=== PATIENT | male | born 1970 | race Hispanic/Latino ===

== ENCOUNTER → 2021-02-07 | Outpatient (CLI) | payer BC ==
[~2021-02-07] MED LIST: IOHEXOL-350 75 ML VIAL IV ONE
== END | disposition home or self-care (01) ==
LOC: RAH 14:02
PROVIDERS: ATTEND Internal Medicine
DX: R59.0 Localized enlarged lymph nodes (principal); Z85.528 Personal history of other malignant neoplasm of kidney
CPT/HCPCS: 70492; Q9967

== ENCOUNTER 2023-05-13 12:43 | Emergency (ER) | payer BC, OTHER ==
[~2023-05-13] VITALS: Ht 190.5 cm; Wt 112.0 kg
[2023-05-13] MEDS ORDERED: ACETAMINOPHEN 325 MG TAB PO ONE (13:30)
[2023-05-13] MEDS ORDERED: ACET-2893 PO (14:47)
[2023-05-13 15:24] VITALS: BP 131/88; PULSE 77; RESP 17; O2SAT 97
== END 2023-05-13 15:33 | disposition home or self-care (01) ==
LOC: EDH 12:43
DX: S96.812A Strain of other specified muscles and tendons at ankle and foot level, left foot, initial encounter (principal); S96.811A Strain of other specified muscles and tendons at ankle and foot level, right foot, initial encounter; S86.812A Strain of other muscle(s) and tendon(s) at lower leg level, left leg, initial encounter; I10 Essential (primary) hypertension; Z98.890 Other specified postprocedural states; Z85.850 Personal history of malignant neoplasm of thyroid; W18.39XA Other fall on same level, initial encounter; Y93.89 Activity, other specified; Y92.89 Other specified places as the place of occurrence of the external cause; Y99.8 Other external cause status
CPT/HCPCS: 73562; 73610

== ENCOUNTER → 2025-07-02 | Outpatient (CLI) | payer BC ==
[~2025-07-02] MED LIST changes: +ACET-3797 PO; -IOHEXOL-350 75 ML VIAL IV ONE
--- NOTE | 2025-07-03 11:01 | HMCIMG ---
ULTRASOUND PELVIS, LIMITED. Clinical Indication: Benign prostatic hyperplasia. Urinary retention. Comparison: Prior CT - DRAINAGE RENAL PELVIS dated 05/25/[address] ABDOMEN/PELVIS W/O CONTRAST dated 05/22/2012. Technique: Limited transabdominal pelvic ultrasound was performed with grayscale imaging and assessment of bladder volumes. Findings: Urinary Bladder: The urinary bladder is adequately distended on prevoid imaging. Prevoid bladder volume measures approximately 233.5 mL. Postvoid bladder volume measures approximately 159.8 mL, consistent with significant postvoid residual urine. Bladder wall thickness measures approximately 4 mm when fully distended, within acceptable limits. No intraluminal mass or calculus is identified. Both ureteric jets are visualized, indicating patency of the distal ureters. Prostate Gland: The prostate gland is enlarged, measuring approximately 4.8 3.4 5.5 cm, with a calculated volume of approximately 47.35 mL. The echotexture is mildly heterogeneous. Findings are consistent with benign prostatic hyperplasia. No focal prostatic mass is identified on this limited transabdominal examination. Pelvic Soft Tissues: On the right side, a well-defined anechoic structure consistent with a urocele is noted, measuring approximately 15 11 15 mm. Impression: 1. Enlarged prostate gland with a calculated volume of approximately 47.35 mL, compatible with benign prostatic hyperplasia. 2. Significant postvoid residual urinary volume, consistent with urinary retention, likely secondary to bladder outlet obstruction. 3. Small right-sided urocele. 4. Comparison is made with prior CT - DRAINAGE RENAL PELVIS dated 05/25/[address] ABDOMEN/PELVIS W/O CONTRAST dated 05/22/2012. Recommendations: 1. Correlate clinically and with serum PSA levels as per ACR and urology practice guidelines for evaluation of benign prostatic hyperplasia. 2. Urology consultation is recommended for management of bladder outlet obstruction and significant postvoid residual urine, in accordance with ACR Appropriateness Criteria. 3. Follow-up imaging is not routinely required for the small urocele unless clinically symptomatic or showing interval change. /[place]
== END | disposition home or self-care (01) ==
LOC: RAH 10:18
PROVIDERS: ATTEND Nurse Practitioner Family
DX: N40.1 Benign prostatic hyperplasia with lower urinary tract symptoms (principal); R33.9 Retention of urine, unspecified; R33.8 Other retention of urine
CPT/HCPCS: 76857

== ENCOUNTER 2025-07-04 01:22 | Emergency (ER) | payer BC ==
[~2025-07-04] VITALS: Ht 190.5 cm; Wt 116.1 kg
--- NOTE | 2025-07-04 01:58 | ERN ---
ED Note History of Present Illness Stated Complaint: C/O URINARY RETENTION Chief Complaint: Urinary Retention Time Seen by MD: : Time Seen by Midlevel: :27 Dictation: The patient is a 55-year-old male with a history of kidney cancer on remission and thyroidectomy who presents to the emergency department with urinary retention onset prior to arrival. Patient reports that he had a Valladares done last Wednesday and they removed on Wednesday and was doing good with out it started again with the retention today. Reports he was seen here yesterday where they did a ultrasound and revealed he had BPH in the started him on tamsulosin. He is pending a follow up with the Urology. Patient denies any fevers, nausea or vomiting, abdominal pain. Denies any other associated symptoms. Allergies: Coded Allergies: No Known Allergies (Verified Allergy, 05/22/12) Home Meds Active Scripts Cephalexin Monohydrate (Keflex) 500 Mg Cap, 1 CAP PO TID for 5 Days, #15 CAP 0 Refills Prov:ZACK LYNN DO 07/04/25 Acetaminophen (Acetaminophen ER) 650 Mg Tablet.er, 650 MG PO TID for 10 Days, #30 TAB Prov:CARLY MOMIN V [employer] 05/13/23 Past Medical History Past Medical History: Hypertension, Other Additional Past Medical Hx: KIDNEY CA (IN REMISSION) Surgical History: Other Surgical History Other: THYROIDECTOMY RN Note Reviewed/Agreed w/PFSH: Yes Review of System Dictation Constitutional: Negative for fever,chills, and weight loss Eyes: Negative for injury, pain,redness, and discharge ENT: Negative for injury,pain or swelling Cardiovascular: Negative for chest pain, palpitations, and edema Respiratory: Negative for shortness of breath, cough, and wheezing, Abdomen/GI: Negative for abdominal pain, nausea, vomiting, diarrhea, and constipation Back: Negative for injury and pain : Positive for urinary retention MS/Extremity: Negative for injury and deformity Skin: Negative for rash, and discoloration Neuro: Negative for headache, weakness, numbness, tingling, and seizure Psych: Negative for suicide ideation, homicidal ideation, and hallucinations Initial Vital Sign VS Vital Signs Date Time Temp Pulse Resp B/P (MAP) Pulse Ox O2 Delivery O2 Flow Rate FiO2 07/04/25 01:24 97.3 104 24 179/112 97 Room Air 07/04/25 03:36 0 21 Physical Exam Dictation Vital Signs reviewed General Appearance: Alert, oriented x 3, no acute distress, well developed, nourished. Head and Face: non-traumatic. Eyes: PERRL, pink conjunctivas, eyelid no trauma, anterior chamber with arcus senilis. Ears: Pinnas intact and no signs of trauma or erythema ear canals clear and no discharge TM no erythema Nose: No discharge, no bleeding. Oropharynx: Mouth normal, tongue pink. pharynx clear,no erythema, tonsils no exudates, no abscesses noted, mucous membrane moist Neck: Supple, non-tender, no thyromegaly, no masses, no JVD, no bruits Breast:Deferred Chest:No tenderness, no crepitus, no paradoxical movement, no retractions Lungs:Clear, well-ventilated, symmetric, no rales, no wheezing, no rhonchi, no stridor, good breath sounds bilaterally Heart: Regular rate, regular rhythm, no murmur, no gallops Vascular: no peripheral edema, Abdomen: Soft, positive bowel sounds, nondistended, no guarding, nontender, no rebound, no masses no hepatomegaly, no splenomegaly, no Subramanian's sign, no hernias. Rectal: Deferred Genital: Deferred Neurological: Normal speech, motor function intact, sensory function intact Musculoskeletal: Neck nontender, full range of motion, back nontender, full range of motion, Extremities: nontender, full range of motion Skin: Color pink, dry, no turgor, no rash, no lacerations, no abrasions, no contusions. Lymphatic: Deferred Results (Laboratory/Radiology) Laboratory/Radiology Laboratory Tests Test 07/04/25 01:54 07/04/25 02:42 White Blood Count 6.7 K/uL (4.8-10.8) Red Blood Count 4.17 MIL/uL (4.50-6.20) L Hemoglobin 12.3 g/dL (14.0-18.0) L Hematocrit 37.1 % (42-54) L Mean Corpuscular Volume 89.0 fL (79-99) Mean Corpuscular Hemoglobin 29.5 pg (27.0-33.0) Mean Corpuscular Hemoglobin Concent 33.2 g/dL (32.0-36.0) Red Cell Distribution Width 14.4 % (11.0-15.5) Platelet Count 188 K/uL (130-400) Mean Platelet Volume 10.6 fL (7.5-10.5) H Immature Granulocyte % (Auto) 0.9 % (0-1) Neutrophils (%) (Auto) 53.1 % (40.0-77.0) Lymphocytes (%) (Auto) 32.3 % (21.0-51.0) Monocytes (%) (Auto) 10.2 % (3.0-13.0) Eosinophils (%) (Auto) 2.9 % (0.0-8.0) Basophils (%) (Auto) 0.6 % (0.0-5.0) Neutrophils # (Auto) 3.5 K/uL (1.8-7.7) Lymphocytes # (Auto) 2.2 K/uL (1.0-4.8) Monocytes # (Auto) 0.7 K/uL (0.1-1.0) Eosinophils # (Auto) 0.19 K/uL (0.00-0.70) Basophils # (Auto) 0.04 K/uL (0.00-0.20) Absolute Immature Granulocyte (auto 0.06 K/uL (0-1) Nucleated Red Blood Cells 0.0 % (0.0-0.19) Sodium Level 136 mmol/L (136-145) Potassium Level 3.8 mmol/L (3.5-5.1) Chloride Level 102 mmol/L (101-111) Carbon Dioxide Level 26 mmol/L (21-32) Blood Urea Nitrogen 16 mg/dL (7-18) Creatinine 1.2 mg/dL (0.5-1.3) Glomerular Filtration Rate Calc 72 mL/min (>90) Random Glucose 89 mg/dL (70-105) Total Calcium 8.6 mg/dL (8.5-10.1) Urine Color COLORLESS (YELLOW) Urine Appearance CLEAR (CLEAR) Urine pH 6.5 (5.0-8.0) Urine Specific English 1.007 (1.001-1.031) Urine Protein NEGATIVE mg/dL (NEGATIVE) Urine Glucose (UA) NEGATIVE mg/dL (NEGATIVE) Urine Ketones NEGATIVE mg/dL (NEGATIVE) Urine Occult Blood SMALL (NEGATIVE) H Urine Nitrate NEGATIVE (NEGATIVE) Urine Bilirubin NEGATIVE mg/dL (NEGATIVE) Urine Urobilinogen 0.2 mg/dL (0.2-1.0) Urine Leukocyte Esterase NEGATIVE [place]oy/uL Urine RBC 0-1 /HPF (0-1) Urine WBC 2-5 /HPF (0-1) H Urine Bacteria None /HPF (None Seen) Labs Reviewed?: Yes ED Course ED Course Orders Procedure Category Date Status Time Nurse Driven Valladares NAM 07/04/25 In Process Removal Pro 01:33 Cbc With Differential LAB 07/04/25 Complete 01:36 Urinalysis Profile LAB 07/04/25 Complete 01:36 Basic Metabolic Panel LAB 07/04/25 Complete 01:36 Vital Signs Date Time Temp Pulse Resp B/P (MAP) Pulse Ox O2 Delivery O2 Flow Rate FiO2 07/04/25 03:36 63 17 97/61 98 Room Air* 0 21 07/04/25 01:24 97.3 104 24 179/112 97 Room Air Medical Decision Making MDM The patient is a 55-year-old male with a history of kidney cancer on remission and thyroidectomy who presents to the emergency department with urinary retention onset prior to arrival. Patient reports that he had a Valladares done last Wednesday and they removed on Wednesday and was doing good with out it started again with the retention today. Reports he was seen here yesterday where they did a ultrasound and revealed he had BPH in the started him on tamsulosin. He is pending a follow up with the Urology. Patient denies any fevers, nausea or vomiting, abdominal pain. Denies any other associated symptoms. Differential diagnosis: UTI, urinary retention, acute kidney injury, dehydration Need for hospitalization: Patient does not meet criteria for hospitalization. There are no social concerns with this patient. Vital signs are stable Patient has a Valladares catheter placed with 400 cc of fluid removed. Patient reports great improvement of symptoms. Labs are unremarkable. No MANISH. No leukocytosis. Urinalysis does show some white blood cells. We will treat with the antibiotics. No signs of SIRS, sepsis, pyelonephritis or other. We will DC and recommend a urology follow up as an outpatient. DX & DISP Disposition: Discharge Departure Impression: Primary Impression: Urinary retention due to benign prostatic hyperplasia Additional Impression: UTI (urinary tract infection) Condition: Stable Scripts Cephalexin Monohydrate (Keflex) 500 Mg Cap 1 CAP PO TID for 5 Days, #15 CAP 0 Refills Prov: ZACK LYNN DO 07/04/25 Additional Instructions: You had urinary retention likely due to BPH (benign prostatic hypertrophy). Keep the Valladares catheter in place for at least two weeks. You had some white blood cells in your urinalysis. This may be a sign of inflammation or infection. I have prescribed antibiotics. Please take as p rescribed. Continue taking the tamsulosin that you have already been prescribed. You will need to follow up with the urologist. Contact your primary doctor for a referral. Please return to the emergency department if you have any concerns. Referrals: EVELIO DONOHUE MD (PCP) I performed a substantive portion of the visit. I have reviewed and personally made and approve the management plan that is documented in the notes by myself with SON/resident. I acknowledged full responsibility for the patient's management plan. ALANA PARNELLP Jul 04, 2025 01:58 ZACK LYNN DO Jul 04, 2025 03:56
[2025-07-04 02:12] LABS: IMMATURE GRANULOCYTE ABSOLUTE 0.06 K/uL (0-1); NUCLEATED RED BLOOD CELLS 0.0 % (0.0-0.19); PLATELET COUNT (AUTO) 188 K/uL (130-400); RED BLOOD CELL COUNT(AUTO) 4.17 MIL/uL (4.50-6.20); RED CELL DISTRIBUTION WIDTH 14.4 % (11.0-15.5); WHITE BLOOD COUNT (AUTO) 6.7 K/uL (4.8-10.8)
[2025-07-04 02:23] LABS: CREATININE 1.2 mg/dL (0.5-1.3); GLOMERULAR FILTR. RATE CALC 72.0 mL/min (>90); GLUCOSE,RANDOM 89.0 mg/dL (70-105); SODIUM SERUM 136.0 mmol/L (136-145); UREA NITROGEN, BLOOD 16.0 mg/dL (7-18)
[2025-07-04 03:31] LABS: APPEARANCE,URINE CLEAR (CLEAR); GLUCOSE, URINE (UA) NEGATIVE (NEGATIVE); LEUKOCYTE ESTERASE ,URINE NEGATIVE Leu/uL (NEGATIVE); NITRATE,URINE NEGATIVE (NEGATIVE); OCCULT BLOOD,URINE SMALL (NEGATIVE)
[2025-07-04 03:49] LABS: ADD UA MICROSCOPIC YES
[2025-07-04] MEDS ORDERED: CEPH500B PO (03:55)
[2025-07-04 04:01] VITALS: BP 101/68; PULSE 63; RESP 17; TEMP 97.9; O2SAT 98
--- NOTE | 2025-07-04 04:12 | NUR ---
LEG BAG PLACED ON PT BEFORE DISCHARGE. PT EDUCATED ON LEG BAG CARE. PT VERBALIZED UNDERSTANDING OF EDUCATION.
== END 2025-07-04 04:13 | disposition home or self-care (01) ==
LOC: EDH 01:22
DX: N40.1 Benign prostatic hyperplasia with lower urinary tract symptoms (principal); R33.8 Other retention of urine; N39.0 Urinary tract infection, site not specified; I10 Essential (primary) hypertension; Z90.89 Acquired absence of other organs; Z85.528 Personal history of other malignant neoplasm of kidney
CPT/HCPCS: 36415; 51702; 80048; 81001; 85025; 99283